=== PATIENT | female | born 1955 | race Caucasian/White ===

== ENCOUNTER 2019-10-04 17:57 | Emergency (ER) | payer OTHER ==
--- NOTE | 2019-10-04 19:15 | RAD REPORT ---
EXAM DESCRIPTION: RAD - Chest Pa And Lat (2 Views) - 10/04/2019 7:07 pm CLINICAL HISTORY: Cough;Congestion Chest pain. COMPARISON: Chest Single View dated 08/16/2017; CHEST PA AND LAT 2 VIEW dated 03/28/2003; CHEST PA AND LAT 2 VIEW dated 05/05/1999 FINDINGS: Linear areas of atelectasis seen in the left lung. Small infiltrate/pneumonia may be prese nt left lung base. Small hiatal hernia. The heart is normal in size. Prominent thoracic dextroscolios is.
--- NOTE | 2019-10-04 19:39 | ER ---
Nurse's Notes [facility] Name: Olivia Farrar Age: 64 yrs Sex: Female : 1955 Arrival Date: 10/04/2019 Time: 17:59 Bed 6 Private MD: Diagnosis: Pneumonia, unspecified organism Presentation: 10/03 18:03 Chief complaint: Patient states: Cough, fever and sore throat since Wednesday last ca1 week. Had fever Wednesday and Wednesday, Wednesday and Wednesday. Dr. Tan put me on Amox-clav Wednesday for URTI. But the cough stays the same, although fever has completely gone. Reports chest congestion and heaviness. Coronavirus screen: Patient reports a subjective fever or greater than 100.4F, or cough, or shortness of breath, or difficulty breathing. Surgical mask placed on patient. Patient moved to private room, placed in contact and droplet isolation with eye protection until further assessment. Patient denies travel on a cruise ship or to a country the [facility] currently lists as an affected area. Patient denies contact with known and/or suspected case of COVID-19. Infection Prevention Nurse has been notified of patient in isolation for probable COVID-19. Ebola Screen: Patient negative for fever greater than or equal to 101.5 degrees Fahrenheit, and additional compatible Ebola Virus Disease symptoms Patient denies exposure to infectious person. Patient denies travel to an Ebola-affected area in the 21 days before illness onset. No symptoms or risks identified at this time. Initial Sepsis Screen: Does the patient meet any 2 criteria? No. Patient's initial sepsis screen is negative. Does the patient have a suspected source of infection? No. Patient's initial sepsis screen is negative. Risk Assessment: Do you want to hurt yourself or someone else? Patient reports no desire to harm self or others. Onset of symptoms was October 04, 2019. 18:03 Method Of Arrival: Ambulatory ca1 18:03 Acuity: JOEY 3 ca1 Historical: - Allergies: 18:09 No Known Allergies; ca1 - Home Meds: 18:09 levothyroxine oral [Active]; fluoxetine 10 mg Oral cap 1 caps once daily [Active]; ca1 - PMHx: 18:09 Hypothyroidism; Depression; ca1 - PSHx: 18:09 paraesophageal repair; ca1 - Immunization history:: Adult Immunizations up to date, Flu vaccine is not up to date. - Social history:: Smoking status: Patient denies any tobacco usage or history of. Screenin:25 Abuse screen: Denies threats or abuse. Denies injuries from another. Nutritional rr5 screening: No deficits noted. Tuberculosis screening: No symptoms or risk factors identified. Fall Risk None identified. Total York Fall Scale indicates No Risk (0-24 pts). Assessment: 19:10 General: Appears in no apparent distress. comfortable, Behavior is calm, cooperative, rr5 appropriate for age, Reports fever for > 3 days. 19:10 Pain: Denies pain. Neuro: Level of Consciousness is awake, alert, obeys commands, rr5 Oriented to person, place, time, situation. Cardiovascular: Capillary refill < 3 seconds Patient's skin is warm and dry. Respiratory: Reports cough that is Airway is patent Respiratory effort is even, unlabored, Respiratory pattern is regular, symmetrical. GI: No signs and/or symptoms were reported involving the gastrointestinal system. : No signs and/or symptoms were reported regarding the genitourinary system. EENT: Reports pain in throat. Derm: Skin is intact, is healthy with good turgor, Skin temperature is warm. Musculoskeletal: Circulation, motion, and sensation intact. Capillary refill < 3 seconds. 19:45 Reassessment: Patient appears in no apparent distress at this time. Patient is alert, rr5 oriented x 3, equal unlabored respirations, skin warm/dry/pink. discharge instruction given and explained without complaints, verbalized understading. Vital Signs: 18:03 BP 142 / 92; Pulse 108; Resp 18 S; Temp 98.6(TE); Pulse Ox 98% on R/A; Weight 78.02 kg ca1 (R); Height 4 ft. 11 in. (149.86 cm) (R); Pain 0/10; 19:10 BP 133 / 87; Pulse 89; Resp 19; Temp 99; Pulse Ox 99% ; Pain 0/10; rr5 18:03 Body Mass Index 34.74 (78.02 kg, 149.86 cm) ca1 ED Course: 17:59 Patient arrived in ED. ag5 18:08 Triage completed. ca1 18:09 Arm band placed on right wrist. ca1 18:13 Meeta Zavala FNP-C is PHCP. kb 18:13 Anil Tariq MD is Attending Physician. kb 18:18 Danielle Tejeda, RN is Primary Nurse. ls4 19:17 Chest Pa And Lat (2 Views) XRAY In Process Unspecified. EDMS 19:25 Patient has correct armband on for positive identification. Bed in low position. rr5 19:45 No provider procedures requiring assistance completed. Patient did not have IV access rr5 during this emergency room visit. Administered Medications: 19:40 Drug: Zithromax 500 mg Route: PO; rr5 19:44 Follow up: Response: Medication administered at discharge. rr5 Outcome: 19:38 Discharge ordered by MD. kb 19:45 Discharged to home ambulatory. rr5 19:45 Condition: stable 19:45 Discharge instructions given to patient, Instructed on discharge instructions, follow up and referral plans. medication usage, Demonstrated understanding of instructions, follow-up care, medications, Prescriptions given X 1. 19:46 Patient left the ED. rr5 Signatures: Dispatcher [employer] EDOK Meeta Zavala, CENTRAL SUPPLY TECHNICIAN-C CENTRAL SUPPLY TECHNICIAN-Danielle Kerns, RN RN ls4 Gerardo Montana, LUCITA RN rr5 Marcela Hernández, LUCITA RN ca1 Mic Kate [facility]
--- NOTE | 2019-10-04 19:39 | EDPHYS ---
Physician Documentation [facility] Name: Olivia Farrar Age: 64 yrs Sex: Female : 1955 Arrival Date: 10/04/2019 Time: 17:59 Bed 6 Private MD: ED Physician Anil Tariq HPI: 10/03 18:46 This 64 yrs old Female presents to ER via Ambulatory with complaints of Upper kb Respiratory Issue. 18:46 The patient or guardian reports cough, that is intermittent, described as mild, with no kb sputum, flu symptoms, myalgias. Onset: The symptoms/episode began/occurred 8 day(s) ago. Modifying factors: The symptoms are alleviated by nothing. the symptoms are aggravated by nothing. Associated signs and symptoms: Pertinent positives: sore throat, Pertinent negatives: chest pain, diarrhea, ear ache, fever, nausea, rhinorrhea, vomiting. Severity of symptoms: At their worst the symptoms were moderate in the emergency department the symptoms have improved. The patient has not experienced similar symptoms in the past. The patient has not recently seen a physician. Pt reports cough, congestion, fever, sore throat and body aches that started 8 days ago. States fever went away on Wednesday, sore throat went away yesterday. Still having cough. "I think my upper respiratory infection turned into bronchitis and I need a different antibiotic." Pt has been on Augmentin since Wednesday. Historical: - Allergies: 18:09 No Known Allergies; ca1 - Home Meds: 18:09 levothyroxine oral [Active]; fluoxetine 10 mg Oral cap 1 caps once daily [Active]; ca1 - PMHx: 18:09 Hypothyroidism; Depression; ca1 - PSHx: 18:09 paraesophageal repair; ca1 - Immunization history:: Adult Immunizations up to date, Flu vaccine is not up to date. - Social history:: Smoking status: Patient denies any tobacco usage or history of. ROS: 18:33 Constitutional: Negative for fever, chills, and weight loss, Neck: Negative for injury, kb pain, and swelling, Cardiovascular: Negative for chest pain, palpitations, and edema, Abdomen/GI: Negative for abdominal pain, nausea, vomiting, diarrhea, and constipation, Back: Negative for injury and pain, MS/Extremity: Negative for injury and deformity, Skin: Negative for injury, rash, and discoloration, Neuro: Negative for headache, weakness, numbness, tingling, and seizure. 18:33 ENT: Positive for sinus congestion, sore throat. 18:33 Respiratory: Positive for cough, Negative for dyspnea on exertion, hemoptysis, orthopnea, pleurisy, shortness of breath, sputum production, wheezing. Exam: 18:33 Constitutional: This is a well developed, well nourished patient who is awake, alert, kb and in no acute distress. Head/Face: Normocephalic, atraumatic. ENT: Nares patent. No nasal discharge, no septal abnormalities noted. Tympanic membranes are normal and external auditory canals are clear. Oropharynx with no redness, swelling, or masses, exudates, or evidence of obstruction, uvula midline. Mucous membranes moist. Neck: Trachea midline, no thyromegaly or masses palpated, and no cervical lymphadenopathy. Supple, full range of motion without nuchal rigidity, or vertebral point tenderness. No Meningismus. Chest/axilla: Normal chest wall appearance and motion. Nontender with no deformity. No lesions are appreciated. Cardiovascular: Regular rate and rhythm with a normal S1 and S2. No gallops, murmurs, or rubs. Normal PMI, no JVD. No pulse deficits. Respiratory: Lungs have equal breath sounds bilaterally, clear to auscultation and percussion. No rales, rhonchi or wheezes noted. No increased work of breathing, no retractions or nasal flaring. Abdomen/GI: Soft, non-tender, with normal bowel sounds. No distension or tympany. No guarding or rebound. No evidence of tenderness throughout. Skin: Warm, dry with normal turgor. Normal color with no rashes, no lesions, and no evidence of cellulitis. MS/ Extremity: Pulses equal, no cyanosis. Neurovascular intact. Full, normal range of motion. Neuro: Awake and alert, GCS 15, oriented to person, place, time, and situation. Cranial nerves II-XII grossly intact. Motor strength 5/5 in all extremities. Sensory grossly intact. Cerebellar exam normal. Normal gait. Vital Signs: 18:03 BP 142 / 92; Pulse 108; Resp 18 S; Temp 98.6(TE); Pulse Ox 98% on R/A; Weight 78.02 kg ca1 (R); Height 4 ft. 11 in. (149.86 cm) (R); Pain 0/10; 19:10 BP 133 / 87; Pulse 89; Resp 19; Temp 99; Pulse Ox 99% ; Pain 0/10; rr5 18:03 Body Mass Index 34.74 (78.02 kg, 149.86 cm) ca1 MDM: 18:13 Patient medically screened. kb 18:46 Data reviewed: vital signs, nurses notes. Data interpreted: Pulse oximetry: on room air kb is 98 %. Interpretation: normal. 19:36 Counseling: I had a detailed discussion with the patient and/or guardian regarding: the kb historical points, exam findings, and any diagnostic results supporting the discharge/admit diagnosis, lab results, radiology results, the need for outpatient follow up, a family practitioner, to return to the emergency department if symptoms worsen or persist or if there are any questions or concerns that arise at home. 19:36 ED course: Pt in no resp distress, o2 sat 99-100% on room air, lungs clear bilaterally. kb Will start on zithromax to treat possible pneumonia seen on x-ray. Pt educated to return for worsening symptoms, difficulty breathing or any other concerns. . 10/03 18:18 Order name: Chest Pa And Lat (2 Views) XRAY; Complete Time: 19:35 kb 10/03 18:41 Order name: Influenza Screen (A ; Complete Time: 19:38 EDMS 10/03 18:41 Order name: Group A Streptococcus Rapid Sc; Complete Time: 19:01 EDMS 10/03 19:08 Order name: Throat Culture EDMS Administered Medications: 19:40 Drug: Zithromax 500 mg Route: PO; rr5 19:44 Follow up: Response: Medication administered at discharge. rr5 Disposition: 10/04/19 19:38 Discharged to Home. Impression: Pneumonia, unspecified organism. - Condition is Stable. - Discharge Instructions: Community-Acquired Pneumonia, Adult, [id number]. - Prescriptions for Zithromax 500 mg Oral Tablet - take 1 tablet by ORAL route once daily for 5 days; 5 tablet. - Medication Reconciliation Form, Thank You Letter, Antibiotic Education, Prescription Opioid Use form. - Follow up: Emergency Department; When: As needed; Reason: Worsening of condition. Follow up: Private Physician; When: 2 - 3 days; Reason: Recheck today's complaints, Continuance of care, Re-evaluation by your physician. Addendum: 10/07/2019 18:58 Co-signature as Attending Physician, Anil Tariq MD. r n Signatures: Dispatcher [employer] EDMS Zavala Meeta, RELIGIOUS EDUCATION TEACHER-C RELIGIOUS EDUCATION TEACHER-Ckb Anil Tariq MD MD rn Roque, Raymond RN RN rr5 Edgar, Marcela RN RN ca1 Corrections: (The following items were deleted from the chart) 10/03 19:46 19:38 10/04/2019 19:38 Discharged to Home. Impression: Pneumonia, unspecified organism. rr5 Condition is Stable. Forms are Medication Reconciliation Form, Thank You Letter, Antibiotic Education, Prescription Opioid Use. Follow up: Emergency Department; When: As needed; Reason: Worsening of condition. Follow up: Private Physician; When: 2 - 3 days; Reason: Recheck today's complaints, Continuance of care, Re-evaluation by your physician. kb
[2019-10-04] MEDS ORDERED: AZITHROMYCIN 250 MG TAB ONE (19:43)
[2019-10-04 19:53] VITALS: BP 133/87; TEMP 99; O2SAT 99
== END 2019-10-04 19:46 | disposition home or self-care (01) ==
LOC: ER 17:57
DX: J18.9 Pneumonia, unspecified organism (principal); E03.9 Hypothyroidism, unspecified; F32.9 Major depressive disorder, single episode, unspecified
CPT/HCPCS: 71046; 87070; 87081; 87804; 99283

== ENCOUNTER 2020-05-12 10:55 | Emergency (ER) | payer OTHER ==
--- NOTE | 2020-05-12 12:19 | ER ---
Nurse's Notes [facility] Name: Olivia Farrar Age: 64 yrs Sex: Female : 1955 Arrival Date: 05/12/2020 Time: 10:57 Bed 15 Private MD: Jose Tan R Diagnosis: Pain in left knee;Sprain of unspecified collateral ligament of left knee;Sprain of other specified parts of left knee Presentation: 05/12 11:07 Chief complaint: Patient states: fell last night, sidewalk was raised and tripped, iw whole body fell to ground, now has left knee pain. 11:07 Acuity: JOEY 4 iw 11: Method Of Arrival: Ambulatory iw 11:07 Coronavirus screen: At this time, the client does not indicate any symptoms associated iw with coronavirus-19. Ebola Screen: Patient negative for fever greater than or equal to 101.5 degrees Fahrenheit, and additional compatible Ebola Virus Disease symptoms Patient denies exposure to infectious person. Patient denies travel to an Ebola-affected area in the 21 days before illness onset. No symptoms or risks identified at this time. Initial Sepsis Screen: Does the patient meet any 2 criteria? No. Patient's initial sepsis screen is negative. Does the patient have a suspected source of infection? No. Patient's initial sepsis screen is negative. Risk Assessment: Do you want to hurt yourself or someone else? Patient reports no desire to harm self or others. Onset of symptoms was May 11, 2020. Historical: - Allergies: 11: No Known Allergies; iw - Home Meds: 11:09 levothyroxine oral once daily [Active]; Paxil Oral once daily [Active]; gabapentin oral iw oral once daily [Active]; - PMHx: 11:09 Depression; Hypothyroidism; iw - PSHx: 11:09 paraesophageal repair; right shoulder; adrian knee; Hysterectomy; iw - Immunization history:: Adult Immunizations. - Social history:: Smoking status: Patient denies any tobacco usage or history of. Screenin:20 Abuse screen: Denies threats or abuse. Denies injuries from another. Nutritional ca1 screening: No deficits noted. Tuberculosis screening: No symptoms or risk factors identified. Fall Risk Fall in past 12 months (25 points). Assessment: 11:20 General: Appears in no apparent distress. comfortable, Behavior is calm, cooperative, ca1 appropriate for age. Pain: Complains of pain in left knee Pain currently is 9 out of 10 on a pain scale. Pain began 1 day ago. Neuro: Level of Consciousness is awake, alert, obeys commands, Oriented to person, place, time, situation. Derm: Skin is intact, is healthy with good turgor, Skin is pink, warm \T\ dry. Musculoskeletal: Circulation, motion, and sensation intact. Capillary refill < 3 seconds, Range of motion: limited in left knee. 12:20 Reassessment: Patient appears in no apparent distress at this time. Patient and/or ca1 family updated on plan of care and expected duration. Pain level reassessed. Patient is alert, oriented x 3, equal unlabored respirations, skin warm/dry/pink. Vital Signs: 11:07 BP 123 / 87; Pulse 87; Resp 16; Temp 98.4; Pulse Ox 99% on R/A; Weight 81.19 kg; Height iw 4 ft. 11 in. (149.86 cm); Pain 9/10; 12:20 BP 102 / 65; Pulse 81; Resp 15 S; Pulse Ox 99% on R/A; ca1 11:07 Body Mass Index 36.15 (81.19 kg, 149.86 cm) iw ED Course: 10:57 Patient arrived in ED. ag5 10:57 Jose Tan MD is Private Physician. ag5 11:07 Triage completed. iw 11:09 Arm band placed on. iw 11:19 Toni Pineda MD is Attending Physician. kdr 11:20 Patient has correct armband on for positive identification. Bed in low position. Call ca1 light in reach. Side rails up X 1. Pulse ox on. NIBP on. Warm blanket given. 11:22 Marcela Hernández, LUCITA is Primary Nurse. ca1 12:16 Knee Left 3 View XRAY In Process Unspecified. EDMS 12:18 Jose Tan MD is Referral Physician. kdr 12:40 No provider procedures requiring assistance completed. Patient did not have IV access ca1 during this emergency room visit. Crutch training done. Knee immobilizer applied on left knee. Administered Medications: No medications were administered Outcome: 12:19 Discharge ordered by . kdr 12:58 Discharged to home via wheelchair, with crutches. ca1 12:58 Condition: stable 12:58 Discharge instructions given to patient, Instructed on discharge instructions, follow up and referral plans. no drinking with medication, no driving heavy equipment, medication usage, crutch walking, Demonstrated understanding of instructions, follow-up care, medications, crutch walking, Prescriptions given X 1. 12:58 Patient left the ED. ca1 Signatures: Dispatcher [employer] EDMS Toni Pineda MD MD kdr Smita Biswas RN RN iw Marcela Hernández RN RN ca1 Mic Kate ag5
--- NOTE | 2020-05-12 12:19 | EDPHYS ---
Physician Documentation [facility] Name: Olivia Farrar Age: 64 yrs Sex: Female : 1955 Arrival Date: 05/12/2020 Time: 10:57 Bed 15 Private MD: Jose Tan R ED Physician Toni Pineda HPI: 05/12 11:39 This 64 yrs old Female presents to ER via Ambulatory with complaints of Fall kdr Injury, Knee Pain. 11:39 Details of fall: The patient fell from an upright position, while walking. Onset: The kdr symptoms/episode began/occurred last night. Associated injuries: The patient sustained Left knee. Severity of symptoms: At their worst the symptoms were mild, moderate, just prior to arrival, in the emergency department the symptoms are unchanged. The patient has not experienced similar symptoms in the past. The patient has not recently seen a physician. 11:39 The patient fell on her left knee last night and initially was able to walk on it but kdr today it is very tender and painful when weightbearing. Historical: - Allergies: 11:09 No Known Allergies; iw - Home Meds: 11:09 levothyroxine oral once daily [Active]; Paxil Oral once daily [Active]; gabapentin oral iw oral once daily [Active]; - PMHx: 11:09 Depression; Hypothyroidism; iw - PSHx: 11:09 paraesophageal repair; right shoulder; adrian knee; Hysterectomy; iw - Immunization history:: Adult Immunizations. - Social history:: Smoking status: Patient denies any tobacco usage or history of. ROS: 11:39 Constitutional: Negative for fever, chills, and weight loss, Eyes: Negative for injury, kdr pain, redness, and discharge, ENT: Negative for injury, pain, and discharge, Neck: Negative for injury, pain, and swelling, Cardiovascular: Negative for chest pain, palpitations, and edema, Respiratory: Negative for shortness of breath, cough, wheezing, and pleuritic chest pain, Abdomen/GI: Negative for abdominal pain, nausea, vomiting, diarrhea, and constipation, Back: Negative for injury and pain, : Negative for injury, bleeding, discharge, and swelling, MS/Extremity: Negative for injury and deformity, Neuro: Negative for headache, weakness, numbness, tingling, and seizure activity. Psych: Negative for depression, anxiety, suicide ideation, homicidal ideation, and hallucinations, Allergy/Immunology: Negative for hives, rash, and allergies, Endocrine: Negative for neck swelling, polydipsia, polyuria, polyphagia, and marked weight changes, Hematologic/Lymphatic: Negative for swollen nodes, abnormal bleeding, and unusual bruising. 11:39 MS/extremity: Positive for injury or acute deformity, decreased range of motion, pain, tenderness. 11:39 Skin: Positive for Exam: 11:39 Constitutional: This is a well developed, well nourished patient who is awake, alert, kdr and in no acute distress. Head/Face: Normocephalic, atraumatic. Eyes: Pupils equal round and reactive to light, extra-ocular motions intact. Lids and lashes normal. Conjunctiva and sclera are non-icteric and not injected. Cornea within normal limits. Periorbital areas with no swelling, redness, or edema. Neck: Trachea midline, no thyromegaly or masses palpated, and no cervical lymphadenopathy. Supple, full range of motion without nuchal rigidity, or vertebral point tenderness. No Meningismus. Chest/axilla: Normal chest wall appearance and motion. Nontender with no deformity. No lesions are appreciated. Cardiovascular: Regular rate and rhythm with a normal S1 and S2. No gallops, murmurs, or rubs. Normal PMI, no JVD. No pulse deficits. Respiratory: Lungs have equal breath sounds bilaterally, clear to auscultation and percussion. No rales, rhonchi or wheezes noted. No increased work of breathing, no retractions or nasal flaring. Abdomen/GI: Soft, non-tender, with normal bowel sounds. No distension or tympany. No guarding or rebound. No evidence of tenderness throughout. 11:39 Musculoskeletal/extremity: Extremities: grossly normal except: contusion, decreased ROM, pain, tenderness. Vital Signs: 11:07 BP 123 / 87; Pulse 87; Resp 16; Temp 98.4; Pulse Ox 99% on R/A; Weight 81.19 kg; Height iw 4 ft. 11 in. (149.86 cm); Pain 9/10; 12:20 BP 102 / 65; Pulse 81; Resp 15 S; Pulse Ox 99% on R/A; ca1 11:07 Body Mass Index 36.15 (81.19 kg, 149.86 cm) MDM: 12:19 Patient medically screened. kdr 15:41 Data reviewed: vital signs, nurses notes, radiologic studies. Counseling: I had a kdr detailed discussion with the patient and/or guardian regarding: the historical points, exam findings, and any diagnostic results supporting the discharge/admit diagnosis, radiology results, the need for outpatient follow up. 05/12 11:39 Order name: Knee Left 3 View XRAY kdr 05/12 11:39 Order name: Knee Immobilizer; Complete Time: 12:56 kdr 05/12 11:39 Order name: Crutches; Complete Time: 12:56 kdr Administered Medications: No medications were administered Disposition: 05/12/20 12:19 Discharged to Home. Impression: Pain in left knee, Sprain of unspecified collateral ligament of left knee, Sprain of other specified parts of left knee. - Condition is Stable. - Discharge Instructions: Joint Pain, Knee Immobilizer, Musculoskeletal Pain, Knee Pain, Knee Pain, [id number]. - Prescriptions for Tramadol 50 mg Oral Tablet - take 1 tablet by ORAL route every 8 hours as needed; 16 tablet. - Medication Reconciliation Form, Thank You Letter, Prescription Opioid Use form. - Follow up: Jose Tan MD; When: 2 - 3 days; Reason: If symptoms return, Further diagnostic work-up, Recheck today's complaints, Continuance of care, Re-evaluation by your physician. - Problem is new. - Symptoms have improved. Signatures: Dispatcher [employer] EDMS Toni Pineda MD MD kdr Smita Biswas RN RN Marcela Hernández RN RN ca1 Corrections: (The following items were deleted from the chart) 12:58 12:19 05/12/2020 12:19 Discharged to Home. Impression: Pain in left knee; Sprain of ca1 unspecified collateral ligament of left knee; Sprain of other specified parts of left knee. Condition is Stable. Forms are Medication Reconciliation Form, Thank You Letter, Antibiotic Education, Prescription Opioid Use. Follow up: Jose Tan; When: 2 - 3 days; Reason: If symptoms return, Further diagnostic work-up, Recheck today's complaints, Continuance of care, Re-evaluation by your physician. Problem is new. Symptoms have improved. kdr
--- NOTE | 2020-05-12 13:01 | RAD REPORT ---
EXAM DESCRIPTION: RAD - Knee Left 3 View - 05/12/2020 12:16 pm CLINICAL HISTORY: PAIN COMPARISON: No comparisons FINDINGS: No fracture, dislocation or periosteal reaction.No joint effusion seen. Medial compartment is slightly narrowed. Patient has moderate severity marginal spurring in all compartments including the tibial spine and intercondylar notch. No soft tissue abnormality. IMPRESSION: Moderate severity knee degenerative change as detailed. No acute bone or joint finding. Clinical concerns for internal derangement or occult bony injury could be further assessed with MR im aging.
[2020-05-12 13:06] VITALS: TEMP 98.4; O2SAT 99
[2020-05-12 13:09] VITALS: BP 102/65
== END 2020-05-12 12:58 | disposition home or self-care (01) ==
LOC: ER 10:55
DX: S83.422A Sprain of lateral collateral ligament of left knee, initial encounter (principal); S83.8X2A Sprain of other specified parts of left knee, initial encounter; W18.09XA Striking against other object with subsequent fall, initial encounter; Y93.01 Activity, walking, marching and hiking; Y92.9 Unspecified place or not applicable; E03.9 Hypothyroidism, unspecified; F32.9 Major depressive disorder, single episode, unspecified
CPT/HCPCS: 99284

== ENCOUNTER 2021-09-29 08:59 | Inpatient (IN) | payer OTHER ==
[2021-09-29] MEDS ORDERED: NA CHLORIDE 0.9% 500 ML ONE (09:38)
[2021-09-29] MEDS ORDERED: ONDANSETRON 4 MG/2 ML VIAL ONE ×2 (09:38→12:23)
[2021-09-29] MEDS ORDERED: FAMOTIDINE 20 MG/2 ML VIAL IV ONE (09:39)
[2021-09-29 09:54] LABS: Absolute Lymphocytes (CBC) 1.4 K/uL (0.7-4.9); Hematocrit 35.8 % (36.0-45.0); Lymphocytes % 14.4 % (15.3-44.8); RBC Red Blood Cell Count 3.88 M/uL (3.86-4.86)
[2021-09-29 10:13] LABS: ALT/SGPT 28 U/L (12-78); AST/SGOT 15 U/L (15-37); Albumin 3.6 g/dL (3.4-5.0); Alkaline Phosphatase 94 U/L (45-117); BUN Blood Urea Nitrogen 40 mg/dL (7-18); Bicarbonate 25 mmol/L (21-32); Bilirubin Total 0.6 mg/dL (0.2-1.0); Glucose Level 165 mg/dL (74-106); Lipase 90 U/L (73-393); Potassium 5.1 mmol/L (3.5-5.1); Protein, Total 7.3 g/dL (6.4-8.2); Sodium Level 150 mmol/L (136-145)
[2021-09-29] MEDS ORDERED: PANTOPRAZOLE 40 MG INJ ONE (10:16)
--- NOTE | 2021-09-29 11:14 | RAD REPORT ---
EXAM DESCRIPTION: CT - Abdomen Pelvis W Contrast - 09/29/2021 10:34 am CLINICAL HISTORY: Abdominal pain COMPARISON: 2019 TECHNIQUE: Computed axial tomography of the abdomen pelvis was obtained. 100 cc Isovue-300 was admin istered intravenously. Oral contrast was not requested which limits evaluation of bowel. All CT scans are performed using dose optimization technique as appropriate and may include automated exposure control or mA/KV adjustment according to patient size. FINDINGS: Fatty liver The small hiatal hernia Spleen, pancreas, adrenal and kidneys appear unremarkable. There is no evidence of diverticulitis. A normal appendix. Tiny umbilical hernia IMPRESSION: No acute abnormality is displayed.
--- NOTE | 2021-09-29 11:42 | ER ---
Nurse's Notes [facility] Name: Olivia Farrar Age: 66 yrs Sex: Female : 1955 Arrival Date: 09/29/2021 Time: 09:02 Bed 8 Private MD: Diagnosis: Weakness;GI Bleed/ Gastrointestinal hemorrhage, unspecified Presentation: 09/29 09:14 Chief complaint: Patient states: nausea that began last night and this morning began aa5 vomiting "blood clots". Pt also reports diarrhea and generalized weakness. Denies pain. Coronavirus screen: diarrhea, vomiting. Ebola Screen: No symptoms or risks identified at this time. Initial Sepsis Screen: Does the patient meet any 2 criteria? HR > 90 bpm. Does the patient have a suspected source of infection? No. Patient's initial sepsis screen is negative. Risk Assessment: Do you want to hurt yourself or someone else? Patient reports no desire to harm self or others. Onset of symptoms was September 29, 2021. 09:14 Acuity: JOEY 3 aa5 09:14 Method Of Arrival: Ambulatory aa5 Historical: - Allergies: 09:15 No Known Allergies; aa5 - Home Meds: 09:44 fluoxetine 10 mg Oral cap 1 caps once daily [Active]; jh6 13:26 gabapentin Oral once daily [Active]; levothyroxine oral once daily [Active]; Paxil Oral dillon once daily [Active]; - PMHx: 09:15 Depression; Hypothyroidism; aa5 - PSHx: 09:15 hernia mesh; aa5 - Immunization history:: Client reports receiving the 2nd dose of the Covid vaccine, Flu vaccine is up to date. - Social history:: Smoking status: Patient denies any tobacco usage or history of. Screenin:44 Abuse screen: Denies threats or abuse. Nutritional screening: No deficits noted. jh6 Tuberculosis screening: No symptoms or risk factors identified. Fall Risk None identified. Assessment: 09:42 General: Appears in no apparent distress. Behavior is calm, cooperative. Pain: Denies jh6 pain. GI: Reports bloody stool, nausea, vomiting. 10:50 Reassessment: Patient and/or family updated on plan of care and expected duration. Pain jh6 level reassessed. Patient is alert, oriented x 3, equal unlabored respirations, skin warm/dry/pink. nausea decreased and has had no episodes of vomiting or dark stools. Patient denies pain at this time. Patient states symptoms have improved. 13:24 Reassessment: PT transported to OR by nurse. dillon 14:59 Reassessment: Patient is alert, oriented x 3, equal unlabored respirations, skin jh6 warm/dry/pink. back from EGD and report was that pt tolerated well with minimal bleeding noted. Vital Signs: 09:14 BP 121 / 74; Pulse 117; Resp 18 S; Temp 97.3(TE); Pulse Ox 98% on R/A; Weight 80.29 kg aa5 (R); Height 4 ft. 11 in. (149.86 cm) (R); 09:43 BP 114 / 73; Pulse 105; Resp 18; Pulse Ox 100% on R/A; Pain 0/10; jh6 10:50 BP 132 / 73; Pulse 96; Resp 18; Pulse Ox 97% ; Pain 0/10; jh6 15:08 BP 114 / 73; Pulse 91; Resp 18; Pulse Ox 99% ; Pain 0/10; jh6 09:14 Body Mass Index 35.75 (80.29 kg, 149.86 cm) aa5 Vitals: 09:43 Cardiac Rhythm Assessment Regular. jh6 ED Course: 09:02 Patient arrived in ED. ds1 09:14 Toni Pineda MD is Attending Physician. kdr 09:14 Arm band placed on. aa5 09:15 Triage completed. aa5 09:28 Rachel Allred, LUCITA is Primary Nurse. jh6 09:40 Initial lab(s) drawn, by ok, sent to lab. jh6 09:45 Placed in gown. Bed in low position. Call light in reach. Side rails up X 1. jh6 10:33 CT Abd/Pelvis - IV Contrast Only In Process Unspecified. EDMS 11:41 Gerardo Tariq MD is Hospitalizing Provider. kdr 12:45 Jeff Fay MD is Hospitalizing Provider. kdr 13:25 No provider procedures requiring assistance completed. Inserted saline lock: 20 gauge dillon in right antecubital area, using aseptic technique. 20:30 Patient admitted, IV remains in place. as6 Administered Medications: 09:41 Drug: Pepcid (famotidine) 20 mg Route: IVP; Site: right antecubital; 6 10:10 Follow up: Response: No adverse reaction dillon 09:41 Drug: Zofran (Ondansetron) 4 mg Route: IVP; Site: right antecubital; 6 10:10 Follow up: Response: No adverse reaction dillon 09:42 Drug: NS 0.9% 500 ml Route: IV; Rate: bolus; Site: right antecubital; 6 10:16 Drug: ProTONIX (pantoprazole) 40 mg Route: IVP; Site: right antecubital; dillon 10:16 Follow up: Response: No adverse reaction dillon 12:25 Drug: Zofran (Ondansetron) 4 mg Route: IVP; Site: right antecubital; 6 Outcome: 11:42 Decision to Hospitalize by Provider. kdr 20:29 Admitted to ICU accompanied by nurse, via wheelchair, room 7, with chart, Report called as6 to Pia LANDRUM 20:29 Condition: stable 20:29 Instructed on the need for admit. 20:51 Patient left the ED. as6 Signatures: Dispatcher [employer] EDMS Toni Pineda MD MD kdr Sanford, Demi ds1 Katey Merlos RN RN aa5 Cody Chaney RN RN as6 Rachel Allred RN RN jh6 Erin Lynn RN RN dillon
--- NOTE | 2021-09-29 11:42 | EDPHYS ---
Physician Documentation [facility] Name: Olivia Farrar Age: 66 yrs Sex: Female : 1955 Arrival Date: 09/29/2021 Time: 09:02 Bed 8 Private MD: ED Physician Toni Pineda HPI: 09/29 10:12 This 66 yrs old Female presents to ER via Ambulatory with complaints of Vomiting blood. kdr 10:12 The patient presents to the emergency department with nausea, that is mild, vomiting, kdr that is intermittent, diarrhea, that is intermittent, abdominal pain, of the abdomen diffusely. Onset: The symptoms/episode began/occurred this morning, at 03:30. Onset: The symptoms/episode began/occurred Patient states that she felt a little nauseated at 10:30 PM last night. She then awoke around 330 this morning and vomited blood clots. She also had a dark stool. She had another episode of vomiting at about 530 this morning that also included blood clots.. Possible causes: unknown. The symptoms are aggravated by nothing. The symptoms are alleviated by nothing. Associated signs and symptoms: The patient has no apparent associated signs or symptoms. Severity of symptoms: At their worst the symptoms were mild moderate in the emergency department the symptoms are unchanged. The patient has not experienced similar symptoms in the past. The patient has not recently seen a physician. Historical: - Allergies: 09:15 No Known Allergies; aa5 - Home Meds: 09:44 fluoxetine 10 mg Oral cap 1 caps once daily [Active]; jh6 13:26 gabapentin Oral once daily [Active]; levothyroxine oral once daily [Active]; Paxil Oral dillon once daily [Active]; - PMHx: 09:15 Depression; Hypothyroidism; aa5 - PSHx: 09:15 hernia mesh; aa5 - Immunization history:: Client reports receiving the 2nd dose of the Covid vaccine, Flu vaccine is up to date. - Social history:: Smoking status: Patient denies any tobacco usage or history of. ROS: 10:12 Constitutional: Negative for fever, chills, and weight loss, Eyes: Negative for injury, kdr pain, redness, and discharge, Neck: Negative for injury, pain, and swelling, Cardiovascular: Negative for chest pain, palpitations, and edema, Respiratory: Negative for shortness of breath, cough, wheezing, and pleuritic chest pain, Back: Negative for injury and pain, MS/Extremity: Negative for injury and deformity, Skin: Negative for injury, rash, and discoloration, Neuro: Negative for headache, weakness, numbness, tingling, and seizure activity. Psych: Negative for depression, anxiety, suicide ideation, homicidal ideation, and hallucinations, Allergy/Immunology: Negative for hives, rash, and allergies, Endocrine: Negative for neck swelling, polydipsia, polyuria, polyphagia, and marked weight changes, Hematologic/Lymphatic: Negative for swollen nodes, abnormal bleeding, and unusual bruising. 10:12 Abdomen/GI: Positive for abdominal pain, nausea, vomiting, and diarrhea, vomiting, hematemesis, black/tarry stool. Exam: 10:12 Constitutional: This is a well developed, well nourished patient who is awake, alert, kdr and in no acute distress. Head/Face: Normocephalic, atraumatic. Eyes: Pupils equal round and reactive to light, extra-ocular motions intact. Lids and lashes normal. Conjunctiva and sclera are non-icteric and not injected. Cornea within normal limits. Periorbital areas with no swelling, redness, or edema. Neck: Trachea midline, no thyromegaly or masses palpated, and no cervical lymphadenopathy. Supple, full range of motion without nuchal rigidity, or vertebral point tenderness. No Meningismus. Chest/axilla: Normal chest wall appearance and motion. Nontender with no deformity. No lesions are appreciated. Cardiovascular: Regular rate and rhythm with a normal S1 and S2. No gallops, murmurs, or rubs. Normal PMI, no JVD. No pulse deficits. Respiratory: Lungs have equal breath sounds bilaterally, clear to auscultation and percussion. No rales, rhonchi or wheezes noted. No increased work of breathing, no retractions or nasal flaring. Abdomen/GI: Soft, non-tender, with normal bowel sounds. No distension or tympany. No guarding or rebound. No evidence of tenderness throughout. Back: No spinal tenderness. No costovertebral tenderness. Full range of motion. Skin: Warm, dry with normal turgor. Normal color with no rashes, no lesions, and no evidence of cellulitis. MS/ Extremity: Pulses equal, no cyanosis. Neurovascular intact. Full, normal range of motion. Neuro: Awake and alert, GCS 15, oriented to person, place, time, and situation. Cranial nerves II-XII grossly intact. Motor strength 5/5 in all extremities. Sensory grossly intact. Cerebellar exam normal. Normal gait. Psych: Awake, alert, with orientation to person, place and time. Behavior, mood, and affect are within normal limits. 10:12 Abdomen/GI: Rectal exam: rectal tone normal, Stool: guaiac positive, black. Vital Signs: 09:14 BP 121 / 74; Pulse 117; Resp 18 S; Temp 97.3(TE); Pulse Ox 98% on R/A; Weight 80.29 kg aa5 (R); Height 4 ft. 11 in. (149.86 cm) (R); 09:43 BP 114 / 73; Pulse 105; Resp 18; Pulse Ox 100% on R/A; Pain 0/10; jh6 10:50 BP 132 / 73; Pulse 96; Resp 18; Pulse Ox 97% ; Pain 0/10; jh6 15:08 BP 114 / 73; Pulse 91; Resp 18; Pulse Ox 99% ; Pain 0/10; jh6 09:14 Body Mass Index 35.75 (80.29 kg, 149.86 cm) aa5 MDM: 10:12 Data reviewed: vital signs, nurses notes, lab test result(s), radiologic studies. kdr Counseling: I had a detailed discussion with the patient and/or guardian regarding: the historical points, exam findings, and any diagnostic results supporting the discharge/admit diagnosis, lab results, radiology results. 11:42 Patient medically screened. kdr 12:45 Physician consultation: Patrick Wilson MD was called at 12:45, was contacted at 12:45, kdr regarding consult, patient's condition, and will see patient in inpatient room. 09/29 09:21 Order name: CBC with Diff kdr 09/29 09:21 Order name: CMP kdr 09/29 09:21 Order name: Lipase kdr 09/29 09:22 Order name: CBC with Automated Diff; Complete Time: 11:37 EDMS 09/29 09:22 Order name: Comprehensive Metabolic Panel; Complete Time: 11:37 EDMS 09/29 09:22 Order name: Lipase; Complete Time: 11:37 EDMS 09/29 09:48 Order name: Type And Screen; Complete Time: 11:37 kdr 09/29 09:48 Order name: CT Abd/Pelvis - IV Contrast Only; Complete Time: 11:37 kdr 09/29 12:59 Order name: COVID-19 SARS RT PCR (Document "Date of Onset" if Symptomatic) bd 09/29 12:59 Order name: SARS-COV-2 RT PCR EDAZ 09/29 14:18 Order name: EN ENDOSCOPY REQUEST EDAZ 09/29 14:47 Order name: Thyroid Stimulating Hormone EDAZ 09/29 14:47 Order name: Hemoglobin EDAZ 09/29 14:47 Order name: Hemoglobin [facility] 09/29 09:21 Order name: IV Saline Lock; Complete Time: 09:34 kdr 09/29 09:21 Order name: Labs collected and sent; Complete Time: 09:34 kdr 09/29 14:47 Order name: NPO EDAZ Administered Medications: 09:41 Drug: Pepcid (famotidine) 20 mg Route: IVP; Site: right antecubital; [facility] 10:10 Follow up: Response: No adverse reaction dillon 09:41 Drug: Zofran (Ondansetron) 4 mg Route: IVP; Site: right antecubital; [facility] 10:10 Follow up: Response: No adverse reaction dillon 09:42 Drug: NS 0.9% 500 ml Route: IV; Rate: bolus; Site: right antecubital; [facility] 10:16 Drug: ProTONIX (pantoprazole) 40 mg Route: IVP; Site: right antecubital; 10:16 Follow up: Response: No adverse reaction dillon 12:25 Drug: Zofran (Ondansetron) 4 mg Route: IVP; Site: right antecubital; [facility] Disposition Summary: 09/29/21 11:42 Hospitalization Ordered Hospitalization Status: Inpatient Admission kdr Condition: Fair kdr Problem: new kdr Symptoms: have improved kdr Bed/Room Type: Standard kdr Provider: Jeff Fay(09/29/21 12:45) kdr Location: Intensive Care Unit(09/29/21 20:21) cg Room Assignment: 7-(09/29/21 20:21) cg Diagnosis - Weakness kdr - GI Bleed/ Gastrointestinal hemorrhage, unspecified kdr Forms: - Medication Reconciliation Form kdr - SBAR form kdr Signatures: Dispatcher [employer] EDMS Toni Pineda MD MD kdr Katey Merlos, RN RN aa5 Roya Diaz RN RN ss Verona Lim RN RN Rachel Allred RN RN jh6 Susan-TannerrErin RN RN dillon Corrections: (The following items were deleted from the chart) 12:45 11:42 Gerardo Tariq kdr kdr 14:47 14:17 Clear Liquid, Advance as Tolerated ordered. EDMS EDMS 17:02 11:42 Telemetry/MedSurg (Inpatient) kdr ss 17:02 11:42 kdr ss 20:21 17:02 [facility] ER HOLD ss cg 20:21 17:02 ERHOLD- ss cg
[2021-09-29] MEDS ORDERED: EPINEPHRINE/PF 1 MG/ML AMP ONE (13:23)
[2021-09-29] MEDS ORDERED: PROMETHAZINE INJ 25 MG/ML AMP ONE (13:30)
[2021-09-29] MEDS: Ringers Lactate 1,000 ML IV ONE (13:38)
[2021-09-29] MEDS ORDERED: propofoL 200 MG/20 ML VIAL IV ONE ×3 (13:40→14:08)
[2021-09-29] MEDS ORDERED: LIDOCAINE 1% MPF 2 ML AMPULE ONE (13:41)
--- NOTE | 2021-09-29 14:42 | P.HP ---
Certification for Inpatient Patient admitted to: Inpatient With expected LOS: >2 Midnights Patient will require the following post-hospital care: None Practitioner: I am a practitioner with admitting privileges, knowledge of patient current condition, hospital course, and medical plan of care. Services: Services provided to patient in accordance with Admission requirements found in Title 42 Section 412.3 of the Code of Federal Regulations Patient History Date of Service: 09/29/21 Reason for admission: Hematemesis History of Present Illness: 66-year-old female with past medical history of depression, hypothyroidism, hiatal hernia , previous negative stress test 4 years ago presented because of sudden onset nausea with vomiting since this a.m. Vomiting was associated with passage of dark/black stools. Patient denies any similar history in the past. She admits to mild weakness and fatigue with onset of symptoms. She presented to the ED because of persistent symptoms. On arrival in the ED her vitals were stable with blood pressure of 120s over 70s but she was mildly tachycardic. Initial hemoglobin was normal at 12.2. Guaiac test was positive for black stool with occult blood. CT of the abdomen with contrast shows no acute intra- abdominal pathology she was started on Protonix and GI evaluation has been done. She denies any recent NSAID use. She has been admitted for GI bleed Allergies No Known Allergies Allergy (Verified 08/16/17 23:36) Home Medications: Levothyroxine [Synthroid*] 0.1 mg PO DAILY 08/16/17 - Past Medical/Surgical History Diabetic: No -: hypothyroidism -: hashimotothyroidist -: paraesogeal -: hysterectomy - Social History Smoking Status: Never smoker Smoking therapy provided: No Patient receptive to therapy: No Alcohol use: No CD- Drugs: No Caffeine use: Yes Place of Residence: Home Review of Systems Eyes: Pain, Vision Change, Conjunctivae Inflammation, Eyelid Inflammation, R edness, Other, As per HPI, Unremarkable ENT: Ear Pain, Ear Discharge, Nose Pain, Nose Discharge, Nose Congestion, Mouth Pain, Mouth Swelling, Throat Pain, Throat Swelling, Other, As per HPI, Unremarkable Respiratory: Cough, Dry, Shortness of Breath, Hemoptysis, SOB with Excertion, Pleuritic Pain, Sputum, Wheezing, Other, As per HPI, Unremarkable Cardiovascular: Palpitations Gastrointestinal: Nausea, Vomiting, Hematochezia Genitourinary: Dysuria, Frequency, Urgency, Incontinence, Hematuria, Retention, Other, As per HPI, Unremarkable Neurological: Weakness Physical Examination - Vital Signs Temperature: 98.4 F Blood Pressure: 118/59 Pulse: 93 Respirations: 16 - Physical Exam General: Alert, In no apparent distress, Oriented x3 HEENT: Atraumatic, Normocephalic, PERRLA Neck: Supple, 2+ carotid pulse no bruit, JVD not distended Respiratory: Clear to auscultation bilaterally, Normal air movement Cardiovascular: No edema, Normal pulses, Regular rate/rhythm, Normal S1 S2 Gastrointestinal: Normal bowel sounds, Soft and benign, Non-distended, No ascites, Tenderness Musculoskeletal: No clubbing, No swelling Neurological: Normal gait, Normal speech, Normal strength at 5/5 x4 extr, Normal tone - Studies Laboratory Data (last 24 hrs) 09/29/21 09:35: Sodium 150 H, Potassium 5.1, BUN 40 H, Creatinine 0.63, Glucose 165 H, Total Bilirubin 0.6, AST 15, ALT 28, Alkaline Phosphatase 94, Lipase 90 09/29/21 09:35: WBC 9.90, Hgb 12.3, Hct 35.8 L, Plt Count 271 Assessment and Plan - Problems (Diagnosis) (1) GI (gastrointestinal bleed) Current Visit: Yes Status: Acute - Plan Impression Upper GI bleedpresumed Hypernatremia History of hypothyroidism Plan We will admit patient to inpatient status to ICU We will place in telemetry Start Protonix drip GI consult has been obtained, follow-up plan for EGD today We will monitor H&H every 6 for now PRBC typed and crossed. No need for transfusion yet until Hemoglobin less than 10 or hypotension Continue to measure of vitals regularly We will start gentle IV fluids with half NS for now Avoid potassium loading since mild elevated K SCD for DVT prophylaxis - Advance Directives Does patient have a Living Will: No Does patient have a Durable POA for Healthcare: No - Code Status/Comfort Care Code Status Assessed: Yes Code Status: Full Code Physician Review: Patient Assessed, Agree with Above Assessment and Plan Time Spent Managing Pts Care (In Minutes): 70
[2021-09-29] MEDS ORDERED: ONDANSETRON 4 MG/2 ML VIAL IV PRN (14:43)
[2021-09-29] MEDS ORDERED: ALBUTEROL 2.5 MG/3 ML NEB SOL NEB PRN (14:43)
[2021-09-29] MEDS: D5 0.45 NS 1,000 ML IV SCH (15:00)
[2021-09-29] MEDS ORDERED: D5 0.45 NS 1,000 ML IV ONE (15:53)
[2021-09-29] MEDS: PANTOPRAZOLE INJ 80 MG in NA CHLORIDE 0.9% 250 ML IV SCH (16:00)
[2021-09-29] MEDS: MORPHINE 2 MG/ML SYR IV PRN (21:19)
[2021-09-29 21:29] VITALS: BMI 31.6
[2021-09-30] MEDS: PANTOPRAZOLE INJ 80 MG in NA CHLORIDE 0.9% 250 ML IV SCH (01:22)
--- NOTE | 2021-09-30 01:28 | OP ---
Surgeon: Patrick Wilson MD Additional Attending Physician: Toni Pineda MD Procedure Performed: Esophagogastroduodenoscopy. Indication For Procedure: Upper gastrointestinal bleed. Plan For Anesthesia: Monitored anesthesia care. Complexity: High due to nature of presentation and possible therapeutic intervention. Technique: After obtaining informed consent from the patient explaining risks and complications whic h include, but are not limited to bleeding, infection, perforation, and anesthesia complication, the patient was placed in the left lateral position and sedation was given. From then on, the scope was advanced into the mouth and carefully guided up until the second portion of the duodenum. After the completion of examination, scope and equipment withdrawn, and procedure terminated in a safe manner. Findings: Esophagus: No gross lesion seen in the entire esophagus. Duodenum: No gross lesion seen in the entire duodenum. Stomach: In the antrum, multiple superficial ulcers were seen. Biopsies were taken from the antrum and body. In the fundus, visualization was difficult because there appeared to be a paraesophageal-t ype of hernia versus postoperative changes in the fundic area. However, with some effort, I was able to visualize the whole fundus. There was an ulcer with a visible vessel that was seen at that site. This was injected with 1:10,000 epinephrine around 4 cc, then cauterized with bipolar gold probe and then a clip was also placed. No bleeding noted during or at the end of the maneuver. Complications: None. Tolerance To Anesthesia: Excellent. Postoperative Diagnoses: Gastric ulcer in the fundic/hernia segment, with evidence of bleeding, mult iple superficial gastric ulcers in the antrum. Plan: 1.Await pathology results. 2.Continue Protonix drip. 3.Start clear liquid diet, advance as tolerated. 4.Avoid NSAIDs. 5.Will need EGD in 4 to 6 weeks for followup. 6.Will need to be on PPI for now on. US/MODL Voice ID: [id number] Report ID: [id number]
[2021-09-30] MEDS: D5 0.45 NS 1,000 ML IV SCH ×2 (03:13→09:29)
[2021-09-30] MEDS: MORPHINE 2 MG/ML SYR IV PRN ×2 (05:16→09:55)
[2021-09-30 05:18] LABS: Hematocrit 27.3 % (36.0-45.0); Lymphocytes % 36.2 % (15.3-44.8); MPV 8.7 fL (7.6-11.3); RBC Red Blood Cell Count 2.95 M/uL (3.86-4.86)
[2021-09-30 05:46] LABS: ALT/SGPT 21 U/L (12-78); AST/SGOT 8 U/L (15-37); Albumin 2.9 g/dL (3.4-5.0); Alkaline Phosphatase 65 U/L (45-117); BUN Blood Urea Nitrogen 17 mg/dL (7-18); Bicarbonate 30 mmol/L (21-32); Bilirubin Total 0.4 mg/dL (0.2-1.0); Glucose Level 123 mg/dL (74-106); Potassium 4.2 mmol/L (3.5-5.1); Protein, Total 5.5 g/dL (6.4-8.2); Sodium Level 143 mmol/L (136-145)
[2021-09-30 09:59] VITALS: O2SAT 97
[2021-09-30] MEDS ORDERED: ACETAMINOPHEN 325 MG TABLET PO PRN (11:32)
--- NOTE | 2021-09-30 16:19 | P.DS ---
Admission Date: 09/29/21 Discharge Date: 09/30/21 Disposition: ROUTINE DISCHARGE Discharge Condition: FAIR Reason for Admission: Hematemesis Consultations: GI-Dr. Wilson. - Problems (1) GI (gastrointestinal bleed) Current Visit: Yes Status: Acute (2) Chest pain Onset Date: 08/17/17 Current Visit: No Status: Acute (3) Acute blood loss anemia Current Visit: Yes Status: Acute Brief History of Present Illness: 66-year-old female with past medical history of depression, hypothyroidism, hiatal hernia , previous negative stress test 4 years ago presented because of sudden onset nausea and vomiting. Vomiting was associated with passage of dark/black stools. Patient denies any similar history in the past. She admits to mild weakness and fatigue with onset of symptoms. Initial hemoglobin in the ED was normal at 12.2. Guaiac test was positive for black stool with occult blood. CT of the abdomen with contrast shows no acute intra-abdominal pathology. She was started on Protonix and admitted for further management. Hospital Course: Patient admitted to the ICU on Protonix drip. She endorsed taking Advair-PM every night for sleep. Patient seen by Dr. Wilson, EGD done demonstrated ulcers in the stomach and esophagus. One also had a visible vessel which was cauterized. Hemoglobin dropped to 9.3. She had no more melena, no hematemesis. Patient monitored after EGD for another day with no issues. She tolerated full liquid to soft diet. Patient is deemed stable for discharge per Dr. Wilson. She is discharged with Protonix twice daily and follow-up with Dr. Wilson as an outpatient. Vital Signs/Physical Exam: Temp Pulse Resp BP Pulse Ox 97.6 F 81 15 111/70 94 09/30/21 12:00 09/30/21 16:00 09/30/21 16:00 09/30/21 15:00 09/30/21 16:00 Laboratory Data at Discharge: WBC 5.40 K/uL (4.3-10.9) D 09/30/21 04:50 Hgb 9.3 g/dL (12.0-15.0) L 09/30/21 04:50 Hct 27.3 % (36.0-45.0) L D 09/30/21 04:50 Plt Count 202 K/uL (152-406) D 09/30/21 04:50 Sodium 143 mmol/L (136-145) 09/30/21 04:50 Potassium 4.2 mmol/L (3.5-5.1) 09/30/21 04:50 BUN 17 mg/dL (7-18) D 09/30/21 04:50 Creatinine 0.63 mg/dL (0.55-1.3) 09/30/21 04:50 Glucose 123 mg/dL (74-106) H 09/30/21 04:50 Total Bilirubin 0.4 mg/dL (0.2-1.0) 09/30/21 04:50 AST 8 U/L (15-37) L 09/30/21 04:50 ALT 21 U/L (12-78) 09/30/21 04:50 Alkaline Phosphatase 65 U/L (45-117) 09/30/21 04:50 Lipase 90 U/L (73-393) 09/29/21 09:35 Home Medications: Levothyroxine [Synthroid*] 0.1 mg PO DAILY 08/16/17 Gabapentin 600 mg PO BEDTIME 09/29/21 PARoxetine HCL [Paxil*] 10 mg PO DAILY 09/29/21 Pantoprazole [Protonix Tab] 40 mg PO BID #60 tab 09/30/21 New Medications: Pantoprazole [Protonix Tab] 40 mg PO BID #60 tab Physician Discharge Instructions: Full liquid diet for a couple of days and then advance to soft diet. Diet: AHA Activity: Ad maría Followup: Jose Tan MD [Primary Care Provider] - 1-2 Weeks Patrick Wilson MD [ACTIVE - CAN ADMIT] - 1-2 Weeks Time spent managing pt's care (in minutes): 37
[2021-09-30 16:52] VITALS: BP 97/77; TEMP 97.3
[2021-09-30] MEDS ORDERED: PANTOPRAZOLE INJ 80 MG in NA CHLORIDE 0.9% 250 ML IV SCH (17:30)
== END 2021-09-30 17:52 | disposition home or self-care (01) | DRG 378 ==
LOC: ER 08:59 → ERHOLD 14:44 → 3RD-ICU 20:33
PROVIDERS: ADMIT Internal Medicine; ATTEND Internal Medicine
PROC: 0DJ08ZZ Inspection of Upper Intestinal Tract, Via Natural or Artificial Opening Endoscopic (ICD-10-PCS; principal; 2021-09-29 13:30)
DX: K25.4 Chronic or unspecified gastric ulcer with hemorrhage (principal); E87.0 Hyperosmolality and hypernatremia; D62 Acute posthemorrhagic anemia; E03.9 Hypothyroidism, unspecified; Z79.890 Hormone replacement therapy; Z90.710 Acquired absence of both cervix and uterus; Z79.899 Other long term (current) drug therapy; Z20.822 Contact with and (suspected) exposure to COVID-19
CPT/HCPCS: 36415; 74177; 80053; 83690; 84443; 85018; 85025; 86850; 86900; 86901; 88305; 88312; 96374; 96375; 99285; C9113; J0171; J2270; J2405; J2550; J2704; J7040; J7050; J7120; J7799; Q9967; U0003